=== PATIENT | female | born 1970 | race Asian ===

== ENCOUNTER 2018-09-14 07:02 | Inpatient (IN) | payer SELFPAY ==
[~2018-09-14] VITALS: Ht 162.6 cm; Wt 57.1 kg
[2018-09-14] MEDS ORDERED: SODIUM CHLORIDE 0.9% 100 ML ONE (07:29)
[2018-09-14] MEDS ORDERED: IOVERSOL 350 MG/ML 100 ML VIAL ONE (07:29)
[2018-09-14] MEDS ORDERED: ASPIRIN 81 MG CHEWABLE TABLET PO ONE ×3 (07:30→08:15)
[2018-09-14 07:43] LABS: BASOPHILS % (AUTO) 0.6 % (0.0-2.0); EOSINOPHILS % (AUTO) 2.3 % (1.0-6.0); HEMATOCRIT 45.1 % (36-46); HEMOGLOBIN 15.4 g/dL (12.0-16.0); LYMPHOCYTES % (AUTO) 34.7 % (22.0-44.0); MEAN CORPUSCULAR HEMOGLOBIN 29.2 pg (26.0-34.0); MEAN CORPUSCULAR HGB CONC 34.1 G/dL (31.0-37.0); MEAN CORPUSCULAR VOLUME 86 fL (80-100); MONOCYTES # (AUTO) 0.4 K/uL (0.1-1.0); MONOCYTES % (AUTO) 6.8 % (2.0-9.0); NEUTROPHILS # (AUTO) 3.2 K/uL (1.8-7.7); NEUTROPHILS % (AUTO) 55.6 % (40.0-70.0); PLATELET COUNT (AUTO) 240 K/uL (150-450); RED BLOOD CELL COUNT(AUTO) 5.27 MIL/uL (4.00-5.20); RED CELL DISTRIBUTION WIDTH 13.1 % (11.5-14.5)
[2018-09-14 07:54] LABS: PROTHROMBIN TIME 10.4 SEC (9.4-11.6)
[2018-09-14 07:58] LABS: ALANINE AMINOTRANSFERASE 37 U/L (12-78); ALBUMIN 3.9 g/dL (3.4-5.0); ALKALINE PHOSPHATASE 73 U/L (46-116); ANION GAP 6 mmol/L (8-16); ASPARTATE AMINOTRANSFERASE 25 U/L (15-37); BILIRUBIN,TOTAL 0.4 mg/dL (0.1-1.0); CALCIUM, TOTAL 9.2 mg/dL (8.8-10.5); CARBON DIOXIDE 29 mmol/L (22-29); CHLORIDE 103 mmol/L (98-107); CREATININE 0.61 mg/dL (0.60-1.30); GLOMERULAR FILTR. RATE CALC > 60 mL/min (>60); GLUCOSE,RANDOM 126 mg/dL (70-110); SODIUM SERUM 138 mmol/L (136-145); TOTAL PROTEIN, SERUM 7.8 g/dL (6.4-8.2); UREA NITROGEN, BLOOD 8 mg/dL (7-18)
[2018-09-14] MEDS ORDERED: ONDANSETRON HCL 4 MG/2 ML VIAL IVP ONE (08:30)
[2018-09-14 10:28] VITALS: BP 142/76
[2018-09-14] MEDS ORDERED: POTASSIUM CHLORIDE 20 MEQ ER TABLET PO ONE (11:00)
[2018-09-14] MEDS ORDERED: ONDANSETRON HCL 4 MG/2 ML VIAL IM PRN (11:00)
[2018-09-14] MEDS ORDERED: ONDANSETRON HCL 4 MG/2 ML VIAL IVP PRN (15:00)
[2018-09-14 15:49] VITALS: BP 122/58
[2018-09-14] MEDS ORDERED: MORPHINE SULFATE 4 MG/ML SYRINGE IVP PRN (17:30)
[2018-09-14] MEDS ORDERED: MAGNESIUM HYDROXIDE SUSPENSION 30 ML UDCUP PO PRN (17:30)
[2018-09-14] MEDS ORDERED: IPRATROPIUM BROMIDE 0.5 MG/2.5 ML NEB SOLUTION NEB PRN (17:30)
[2018-09-14] MEDS ORDERED: HYDROCODONE/ACETAMINOPHEN 5-325 MG TABLET PO PRN (17:30)
[2018-09-14] MEDS ORDERED: ACETAMINOPHEN 325 MG TABLET PO PRN (17:30)
[2018-09-14] MEDS ORDERED: ZOLPIDEM TARTRATE 5 MG TABLET PO PRN (17:30)
[2018-09-14] MEDS ORDERED: BISACODYL 10 MG RECTAL RECTAL SUPPOSITORY PR PRN (17:30)
[2018-09-14] MEDS ORDERED: ALBUTEROL SULFATE 2.5 MG/0.5 ML NEB SOLUTION NEB PRN (17:30)
[2018-09-14 18:28] LABS: FREE T4 (FREE THYROXINE) 0.85 ng/dL (0.76-1.46); THYROID STIMULATING HORMONE 0.98 uIU/mL (0.36-3.74)
[2018-09-14 19:26] LABS: APPEARANCE,URINE CLEAR (CLEAR); BILIRUBIN,URINE NEGATIVE (NEGATIVE); GLUCOSE, URINE (UA) NEGATIVE (NEGATIVE); KETONES,URINE 40 mg/dL (NEGATIVE); LEUKOCYTE ESTERASE ,URINE NEGATIVE (NEGATIVE); NITRATE,URINE NEGATIVE (NEGATIVE); OCCULT BLOOD,URINE NEGATIVE (NEGATIVE); PH,URINE 6.5 (5.0-8.0); PROTEIN,URINE NEGATIVE (NEGATIVE); UROBILINOGEN,URINE 0.2 mg/dL (<=1.0)
[2018-09-14 19:28] LABS: AMPHET/METH SCREEN,URINE NEGATIVE (NEGATIVE); BARBITURATE SCREEN, URINE NEGATIVE (NEGATIVE); BENZODIAZEPINES SCREEN,URINE NEGATIVE (NEGATIVE); CANNABINOID SCREEN,URINE NEGATIVE (NEGATIVE); COCAINE SCREEN,URINE NEGATIVE (NEGATIVE); METHADONE SCREEN, URINE NEGATIVE (NEGATIVE); OPIATE SCREEN,URINE NEGATIVE (NEGATIVE); PHENCYCLIDINE SCREEN,URINE NEGATIVE (NEGATIVE)
[2018-09-14 19:32] LABS: BACTERIA,URINE Few /HPF (None Seen); MUCUS,URINE Moderate LPF (None Seen); SQUAMOUS EPITHELIAL CELL,UR Few /LPF (None Seen); WBC,URINE 0-2 /HPF (0-5)
[2018-09-14] MEDS: MECLIZINE HCL 25 MG TABLET PO PRN (19:32)
[2018-09-14] MEDS: ONDANSETRON HCL 4 MG/2 ML VIAL IVP PRN (19:41)
[2018-09-14 19:46] VITALS: BP 128/58
[2018-09-14] MEDS: DOCUSATE SODIUM 100 MG CAPSULE PO SCH (20:48)
[2018-09-14] MEDS: HEPARIN SODIUM,PORCINE 5,000 UNITS/ML VIAL SQ SCH (23:46)
[2018-09-14 23:59] VITALS: BP 110/53
[2018-09-15 03:38] VITALS: BP 111/53
[2018-09-15 06:23] LABS: CHOL/HDL RATIO 3.5 (3.9-5.7); POTASSIUM 3.7 mmol/L (3.5-5.1)
[2018-09-15 07:10] VITALS: BP 108/63
[2018-09-15] MEDS: ONDANSETRON HCL 4 MG/2 ML VIAL IVP PRN (07:25)
[2018-09-15] MEDS: HEPARIN SODIUM,PORCINE 5,000 UNITS/ML VIAL SQ SCH (08:00)
[2018-09-15] MEDS: MECLIZINE HCL 25 MG TABLET PO PRN (08:17)
[2018-09-15] MEDS: DOCUSATE SODIUM 100 MG CAPSULE PO SCH ×2 (08:17→20:12)
[2018-09-15] MEDS: ASPIRIN 81 MG EC TABLET PO SCH (08:18)
[2018-09-15] MEDS ORDERED: PANTOPRAZOLE SODIUM 40 MG/VIAL IVP SCH (09:00)
[2018-09-15 11:49] VITALS: BP 115/66
[2018-09-15 15:04] LABS: GLUCOMETER DEV NAME(LOC) 5S 1N; GLUCOSE,POINT OF CARE 128 MG/DL (70-110)
[2018-09-15 15:39] VITALS: BP 129/77
[2018-09-15 19:16] VITALS: BP 127/65
[2018-09-15 23:16] VITALS: BP 110/64
[2018-09-16 05:09] VITALS: BP 137/84
[2018-09-16 07:01] VITALS: BP 142/85
[2018-09-16] MEDS: ASPIRIN 81 MG EC TABLET PO SCH (08:24)
[2018-09-16] MEDS: DOCUSATE SODIUM 100 MG CAPSULE PO SCH (08:25)
[2018-09-16 11:17] VITALS: BP 141/91
[2018-09-16] MEDS ORDERED: MECL-111 PO (13:45)
[2018-09-16] MEDS ORDERED: ASPI81TA39 PO (13:45)
[2018-09-16] MEDS ORDERED: ATOR20TA86 PO (13:46)
== END 2018-09-16 14:35 | disposition home or self-care (01) | DRG 149 ==
LOC: EMS 07:02 → 5S 08:27 → 5N 09-15 12:45
PROVIDERS: ADMIT Hospitalist; ATTEND Hospitalist
DX: H81.10 Benign paroxysmal vertigo, unspecified ear (principal); R00.1 Bradycardia, unspecified; E87.6 Hypokalemia; D64.9 Anemia, unspecified; E78.5 Hyperlipidemia, unspecified; Z59.0 Homelessness
CPT/HCPCS: 70551; 82948; 84132; 84439; 84443; 86850; 86900; 86901; 93005; 93306; 93880; 97110; 97116; 97165; 97535; C9113; G0378; J1644; J2405; J7050

== ENCOUNTER 2018-09-19 09:24 | Inpatient (IN) | payer SELFPAY ==
[~2018-09-19] VITALS: Ht 152.4 cm; Wt 51.1 kg
[~2018-09-19 09:24] MED LIST: ASPI81TA39 PO; ATOR20TA86 PO; MECL-111 PO
[2018-09-19] MEDS: MECLIZINE HCL 25 MG TABLET PO ONE ×2 (10:15→10:18)
[2018-09-19 10:28] LABS: BASOPHILS % (AUTO) 0.7 % (0.0-2.0); EOSINOPHILS % (AUTO) 1.2 % (1.0-6.0); HEMATOCRIT 44.3 % (36-46); HEMOGLOBIN 15.7 g/dL (12.0-16.0); LYMPHOCYTES # (AUTO) 1.9 K/uL (1.0-4.8); LYMPHOCYTES % (AUTO) 31.9 % (22.0-44.0); MEAN CORPUSCULAR HEMOGLOBIN 29.7 pg (26.0-34.0); MEAN CORPUSCULAR HGB CONC 35.4 G/dL (31.0-37.0); MEAN CORPUSCULAR VOLUME 84 fL (80-100); MONOCYTES # (AUTO) 0.5 K/uL (0.1-1.0); MONOCYTES % (AUTO) 9.1 % (2.0-9.0); NEUTROPHILS # (AUTO) 3.4 K/uL (1.8-7.7); NEUTROPHILS % (AUTO) 57.1 % (40.0-70.0); PLATELET COUNT (AUTO) 266 K/uL (150-450); RED BLOOD CELL COUNT(AUTO) 5.27 MIL/uL (4.00-5.20); RED CELL DISTRIBUTION WIDTH 12.6 % (11.5-14.5)
[2018-09-19] MEDS ORDERED: DIAZEPAM 5 MG/ML 2 ML SYRINGE IVP ONE (10:30)
[2018-09-19 10:39] LABS: ANION GAP 7 mmol/L (8-16); CALCIUM, TOTAL 9.3 mg/dL (8.8-10.5); CARBON DIOXIDE 29 mmol/L (22-29); CHLORIDE 104 mmol/L (98-107); CREATININE 0.63 mg/dL (0.60-1.30); GLOMERULAR FILTR. RATE CALC > 60 mL/min (>60); GLUCOSE,RANDOM 105 mg/dL (70-110); POTASSIUM 3.4 mmol/L (3.5-5.1); PROTHROMBIN TIME 10.6 SEC (9.4-11.6); SODIUM SERUM 140 mmol/L (136-145); UREA NITROGEN, BLOOD 8 mg/dL (7-18)
[2018-09-19 11:02] LABS: B-TYPE NATRIURETIC PEPTIDE 9 pg/mL (0-100)
[2018-09-19 11:10] LABS: ALANINE AMINOTRANSFERASE 31 U/L (12-78); ALBUMIN 4.2 g/dL (3.4-5.0); ALKALINE PHOSPHATASE 72 U/L (46-116); ASPARTATE AMINOTRANSFERASE 23 U/L (15-37); BILIRUBIN,TOTAL 0.6 mg/dL (0.1-1.0); CREATINE KINASE, TOTAL ONLY 76 U/L (26-192); TOTAL PROTEIN, SERUM 8.2 g/dL (6.4-8.2)
[2018-09-19 11:32] LABS: BILIRUBIN,URINE NEGATIVE (NEGATIVE); GLUCOSE, URINE (UA) NEGATIVE (NEGATIVE); KETONES,URINE NEGATIVE (NEGATIVE); LEUKOCYTE ESTERASE ,URINE TRACE (NEGATIVE); NITRATE,URINE NEGATIVE (NEGATIVE); OCCULT BLOOD,URINE NEGATIVE (NEGATIVE); PH,URINE 7.5 (5.0-8.0); PROTEIN,URINE NEGATIVE (NEGATIVE); UROBILINOGEN,URINE 0.2 mg/dL (<=1.0)
[2018-09-19 12:00] LABS: AMORPHOUS SEDIMENT,UR Few /LPF (None Seen); APPEARANCE,URINE SLIGHTLY CLOUDY (CLEAR); BACTERIA,URINE None Seen /HPF (None Seen); RBC,URINE None Seen /HPF (0-2); SQUAMOUS EPITHELIAL CELL,UR Few /LPF (None Seen); WBC,URINE 0-2 /HPF (0-5)
[2018-09-19] MEDS ORDERED: GLUCAGON,HUMAN RECOMBINANT 1 MG VIAL IVP ONE (16:45)
[2018-09-19] MEDS ORDERED: SODIUM CHLORIDE 0.9% 1,000 ML IV ONE (17:30)
[2018-09-19] MEDS ORDERED: 0.9% SODIUM CHLORIDE 10 ML SYRINGE IVP PRN (17:45)
[2018-09-19] MEDS ORDERED: ACETAMINOPHEN 325 MG TABLET PO PRN (17:45)
[2018-09-19] MEDS ORDERED: ONDANSETRON HCL 4 MG/2 ML VIAL IVP PRN (17:45)
[2018-09-19] MEDS ORDERED: BISACODYL 10 MG RECTAL RECTAL SUPPOSITORY PR PRN (20:30)
[2018-09-19] MEDS: DOCUSATE SODIUM 100 MG CAPSULE PO SCH (21:00)
[2018-09-19] MEDS: ASPIRIN 325 MG TABLET NG SCH (21:00)
[2018-09-19] MEDS: ATORVASTATIN CALCIUM 40 MG TABLET NG SCH (21:00)
[2018-09-19 21:11] LABS: GLUCOSE,POINT OF CARE 101 MG/DL (70-110)
[2018-09-19 21:57] VITALS: BP 135/88
[2018-09-19 22:25] LABS: CHOL/HDL RATIO 2.6 (3.9-5.7)
[2018-09-19] MEDS: DEXTROSE 5%-0.45% SODIUM CHL 1,000 ML IV SCH (22:42)
[2018-09-19 23:49] VITALS: BP 103/69
[2018-09-20] MEDS: HEPARIN SODIUM,PORCINE 5,000 UNITS/ML VIAL SQ SCH ×4 (00:21→23:32)
[2018-09-20 03:39] VITALS: BP 100/55
[2018-09-20 06:30] LABS: BASOPHILS % (AUTO) 0.5 % (0.0-2.0); EOSINOPHILS % (AUTO) 0.2 % (1.0-6.0); HEMATOCRIT 40.2 % (36-46); HEMOGLOBIN 14.2 g/dL (12.0-16.0); LYMPHOCYTES # (AUTO) 1.7 K/uL (1.0-4.8); LYMPHOCYTES % (AUTO) 12.8 % (22.0-44.0); MEAN CORPUSCULAR HEMOGLOBIN 29.5 pg (26.0-34.0); MEAN CORPUSCULAR HGB CONC 35.3 G/dL (31.0-37.0); MEAN CORPUSCULAR VOLUME 84 fL (80-100); MONOCYTES % (AUTO) 7.2 % (2.0-9.0); NEUTROPHILS # (AUTO) 10.7 K/uL (1.8-7.7); NEUTROPHILS % (AUTO) 79.3 % (40.0-70.0); PLATELET COUNT (AUTO) 243 K/uL (150-450); RED CELL DISTRIBUTION WIDTH 13.1 % (11.5-14.5)
[2018-09-20 06:46] LABS: ALANINE AMINOTRANSFERASE 33 U/L (12-78); ALBUMIN 3.7 g/dL (3.4-5.0); ALKALINE PHOSPHATASE 67 U/L (46-116); ANION GAP 4 mmol/L (8-16); ASPARTATE AMINOTRANSFERASE 20 U/L (15-37); BILIRUBIN,TOTAL 0.9 mg/dL (0.1-1.0); CARBON DIOXIDE 33 mmol/L (22-29); CHLORIDE 103 mmol/L (98-107); GLOMERULAR FILTR. RATE CALC > 60 mL/min (>60); GLUCOSE,RANDOM 123 mg/dL (70-110); POTASSIUM 3.4 mmol/L (3.5-5.1); SODIUM SERUM 140 mmol/L (136-145); TOTAL PROTEIN, SERUM 7.7 g/dL (6.4-8.2); UREA NITROGEN, BLOOD 12 mg/dL (7-18)
[2018-09-20 07:15] VITALS: BP 140/79
[2018-09-20] MEDS ORDERED: LORazepam 2 MG/ML VIAL IVP PRN (07:45)
[2018-09-20] MEDS: PANTOPRAZOLE SODIUM 40 MG/VIAL IVP SCH (08:13)
[2018-09-20] MEDS ORDERED: LORazepam 2 MG/ML VIAL IVP ONE (08:15)
[2018-09-20] MEDS ORDERED: GADOBUTROL 1 MMOL/ML 10 ML VIAL IVP ONE (09:32)
[2018-09-20] MEDS ORDERED: MAGNESIUM SULFATE 2 GM/WATER 50 ML IV PRN (11:15)
[2018-09-20] MEDS ORDERED: MAGNESIUM SULFATE 4 GM/WATER 100 ML IV PRN (11:15)
[2018-09-20] MEDS ORDERED: MAGNESIUM OXIDE 400 MG TABLET PO PRN (11:15)
[2018-09-20] MEDS ORDERED: POTASSIUM CHLORIDE 20 MEQ ER TABLET PO PRN (11:15)
[2018-09-20 11:34] VITALS: BP 151/88
[2018-09-20] MEDS: POTASSIUM CHL 10 MEQ/WATER 50 ML IV PRN ×4 (12:15→21:36)
[2018-09-20] MEDS: DOCUSATE SODIUM 100 MG CAPSULE PO SCH ×2 (12:15→21:36)
[2018-09-20] MEDS: CLOPIDOGREL BISULFATE 75 MG TABLET PO SCH (12:15)
[2018-09-20] MEDS: DEXTROSE 5%-0.45% SODIUM CHL 1,000 ML IV SCH (12:40)
[2018-09-20 15:30] VITALS: BP 154/98
[2018-09-20 19:50] VITALS: BP 154/88
[2018-09-20] MEDS: ASPIRIN 325 MG TABLET NG SCH (21:35)
[2018-09-20] MEDS: ATORVASTATIN CALCIUM 40 MG TABLET NG SCH (21:36)
[2018-09-20] MEDS ORDERED: SODIUM CHLORIDE 0.9% 250 ML IV ONE (22:00)
[2018-09-20 23:41] VITALS: BP 128/86
[2018-09-21] MEDS ORDERED: SODIUM CHLORIDE 0.9% 250 ML IV ONE (01:15)
[2018-09-21] MEDS: POTASSIUM CHL 10 MEQ/WATER 50 ML IV PRN ×5 (01:17→14:56)
[2018-09-21 04:15] VITALS: BP 120/98
[2018-09-21] MEDS: DEXTROSE 5%-0.45% SODIUM CHL 1,000 ML IV SCH ×2 (04:34→23:42)
[2018-09-21 05:52] LABS: MAGNESIUM 2.3 mg/dL (1.80-2.40)
[2018-09-21 06:18] LABS: POTASSIUM 3.4 mmol/L (3.5-5.1)
[2018-09-21] MEDS: HEPARIN SODIUM,PORCINE 5,000 UNITS/ML VIAL SQ SCH ×2 (07:22→23:42)
[2018-09-21] MEDS: CLOPIDOGREL BISULFATE 75 MG TABLET PO SCH (07:23)
[2018-09-21] MEDS: DOCUSATE SODIUM 100 MG CAPSULE PO SCH ×2 (07:23→23:43)
[2018-09-21] MEDS: PANTOPRAZOLE SODIUM 40 MG/VIAL IVP SCH (07:25)
[2018-09-21 07:48] VITALS: BP 147/95
[2018-09-21] MEDS ORDERED: MECLIZINE HCL 25 MG TABLET PO PRN (10:15)
[2018-09-21 12:15] VITALS: BP 157/81
[2018-09-21 16:18] VITALS: BP 139/92
[2018-09-21 19:41] VITALS: BP 124/79
[2018-09-21] MEDS: ATORVASTATIN CALCIUM 40 MG TABLET NG SCH (23:41)
[2018-09-21 23:48] VITALS: BP 112/73
[2018-09-22 05:11] VITALS: BP 129/68
[2018-09-22 05:55] LABS: BASOPHILS % (AUTO) 0.7 % (0.0-2.0); HEMATOCRIT 42.1 % (36-46); HEMOGLOBIN 14.5 g/dL (12.0-16.0); LYMPHOCYTES # (AUTO) 1.9 K/uL (1.0-4.8); MEAN CORPUSCULAR HEMOGLOBIN 29.3 pg (26.0-34.0); MEAN CORPUSCULAR HGB CONC 34.4 G/dL (31.0-37.0); MEAN CORPUSCULAR VOLUME 85 fL (80-100); MONOCYTES # (AUTO) 1.4 K/uL (0.1-1.0); MONOCYTES % (AUTO) 12.8 % (2.0-9.0); NEUTROPHILS # (AUTO) 7.4 K/uL (1.8-7.7); NEUTROPHILS % (AUTO) 67.5 % (40.0-70.0); PLATELET COUNT (AUTO) 257 K/uL (150-450); RED BLOOD CELL COUNT(AUTO) 4.95 MIL/uL (4.00-5.20); RED CELL DISTRIBUTION WIDTH 13.1 % (11.5-14.5)
[2018-09-22 06:02] LABS: ANION GAP 11 mmol/L (8-16); CALCIUM, TOTAL 9.6 mg/dL (8.8-10.5); CARBON DIOXIDE 28 mmol/L (22-29); CHLORIDE 103 mmol/L (98-107); CREATININE 0.67 mg/dL (0.60-1.30); GLOMERULAR FILTR. RATE CALC > 60 mL/min (>60); GLUCOSE,RANDOM 124 mg/dL (70-110); POTASSIUM 3.5 mmol/L (3.5-5.1); SODIUM SERUM 142 mmol/L (136-145); UREA NITROGEN, BLOOD 11 mg/dL (7-18)
[2018-09-22 07:26] VITALS: BP 122/81
[2018-09-22] MEDS: ASPIRIN 81 MG CHEWABLE TABLET PO SCH (08:59)
[2018-09-22] MEDS: DOCUSATE SODIUM 100 MG CAPSULE PO SCH ×2 (08:59→20:06)
[2018-09-22] MEDS: HEPARIN SODIUM,PORCINE 5,000 UNITS/ML VIAL SQ SCH ×2 (09:00→20:06)
[2018-09-22] MEDS: PANTOPRAZOLE SODIUM 40 MG/VIAL IVP SCH (09:03)
[2018-09-22 11:33] VITALS: BP 141/94
[2018-09-22] MEDS: DEXTROSE 5%-0.45% SODIUM CHL 1,000 ML IV SCH (15:05)
[2018-09-22 15:35] VITALS: BP 132/89
[2018-09-22 19:20] VITALS: BP 148/60
[2018-09-22] MEDS: ATORVASTATIN CALCIUM 40 MG TABLET NG SCH (20:06)
[2018-09-23] VITALS (8 sets, daily range): BP systolic 103–196; BP diastolic 63–94
[2018-09-23] MEDS: ACETAMINOPHEN 325 MG TABLET PO PRN (04:48)
[2018-09-23] MEDS: PANTOPRAZOLE SODIUM 40 MG/VIAL IVP SCH (08:46)
[2018-09-23] MEDS: HEPARIN SODIUM,PORCINE 5,000 UNITS/ML VIAL SQ SCH ×2 (08:47→20:32)
[2018-09-23] MEDS: DOCUSATE SODIUM 100 MG CAPSULE PO SCH ×2 (08:47→20:31)
[2018-09-23] MEDS: ASPIRIN 81 MG CHEWABLE TABLET PO SCH (08:47)
[2018-09-23] MEDS: ATORVASTATIN CALCIUM 40 MG TABLET NG SCH (20:31)
[2018-09-24] VITALS (7 sets, daily range): BP systolic 115–145; BP diastolic 65–90
[2018-09-24] MEDS: ACETAMINOPHEN 325 MG TABLET PO PRN ×2 (01:26→18:32)
[2018-09-24] MEDS: PANTOPRAZOLE SODIUM 40 MG/VIAL IVP SCH (08:38)
[2018-09-24] MEDS: ASPIRIN 81 MG CHEWABLE TABLET PO SCH (08:40)
[2018-09-24] MEDS: DOCUSATE SODIUM 100 MG CAPSULE PO SCH ×2 (08:40→20:16)
[2018-09-24] MEDS: HEPARIN SODIUM,PORCINE 5,000 UNITS/ML VIAL SQ SCH ×2 (08:40→20:16)
[2018-09-24] MEDS ORDERED: SODIUM CHLORIDE 0.9% 1,000 ML IV ONE ×2 (11:58→12:00)
[2018-09-24] MEDS ORDERED: CeFAZolin 1 GM/DEXTROSE 50 ML IV ONE (12:15)
[2018-09-24] MEDS: ATORVASTATIN CALCIUM 40 MG TABLET NG SCH (20:16)
[2018-09-25 04:52] VITALS: BP 132/90
[2018-09-25] MEDS ORDERED: PROPOFOL 1% 20 ML VIAL IVP ONE (06:34)
[2018-09-25 07:10] VITALS: BP 148/84
[2018-09-25] MEDS: DOCUSATE SODIUM 100 MG CAPSULE PO SCH ×2 (08:20→19:43)
[2018-09-25] MEDS: PANTOPRAZOLE SODIUM 40 MG/VIAL IVP SCH (08:20)
[2018-09-25] MEDS: ASPIRIN 81 MG CHEWABLE TABLET PO SCH (08:20)
[2018-09-25] MEDS: HEPARIN SODIUM,PORCINE 5,000 UNITS/ML VIAL SQ SCH ×2 (08:20→19:43)
[2018-09-25 13:45] VITALS: BP 145/82
[2018-09-25] MEDS: ATORVASTATIN CALCIUM 40 MG TABLET NG SCH (19:43)
[2018-09-25 20:19] VITALS: BP 145/88
[2018-09-25 23:38] VITALS: BP 116/67
[2018-09-26 04:50] VITALS: BP 129/74
[2018-09-26 07:27] VITALS: BP 128/82
[2018-09-26 12:05] VITALS: BP 133/95
[2018-09-26 15:53] VITALS: BP 140/88
[2018-09-26] MEDS: ASPIRIN 81 MG CHEWABLE TABLET PO SCH (16:03)
[2018-09-26] MEDS: HEPARIN SODIUM,PORCINE 5,000 UNITS/ML VIAL SQ SCH ×2 (16:03→19:43)
[2018-09-26] MEDS: DOCUSATE SODIUM 100 MG CAPSULE PO SCH ×2 (16:03→19:43)
[2018-09-26] MEDS: PANTOPRAZOLE SODIUM 40 MG/VIAL IVP SCH (16:04)
[2018-09-26] MEDS: ATORVASTATIN CALCIUM 40 MG TABLET NG SCH (19:43)
[2018-09-26 19:47] VITALS: BP 124/91
[2018-09-26 23:54] VITALS: BP 134/88
[2018-09-27] MEDS: ACETAMINOPHEN 325 MG TABLET PO PRN ×2 (02:14→19:52)
[2018-09-27 05:16] VITALS: BP 110/73
[2018-09-27 07:59] VITALS: BP 120/88
[2018-09-27] MEDS: ASPIRIN 81 MG CHEWABLE TABLET PO SCH (08:02)
[2018-09-27] MEDS: HEPARIN SODIUM,PORCINE 5,000 UNITS/ML VIAL SQ SCH ×2 (08:02→19:52)
[2018-09-27] MEDS: PANTOPRAZOLE SODIUM 40 MG/VIAL IVP SCH (08:02)
[2018-09-27] MEDS: DOCUSATE SODIUM 100 MG CAPSULE PO SCH ×2 (08:02→19:52)
[2018-09-27 11:20] VITALS: BP 143/90
[2018-09-27 19:51] VITALS: BP 147/69
[2018-09-27] MEDS: ATORVASTATIN CALCIUM 40 MG TABLET NG SCH (19:52)
[2018-09-28 00:12] VITALS: BP 116/70
[2018-09-28 04:18] VITALS: BP 119/73
[2018-09-28 08:00] VITALS: BP 117/52
[2018-09-28] MEDS: HEPARIN SODIUM,PORCINE 5,000 UNITS/ML VIAL SQ SCH (08:20)
[2018-09-28] MEDS: DOCUSATE SODIUM 100 MG CAPSULE PO SCH (08:21)
[2018-09-28] MEDS: PANTOPRAZOLE SODIUM 40 MG/VIAL IVP SCH (08:21)
[2018-09-28] MEDS: ASPIRIN 81 MG CHEWABLE TABLET PO SCH (08:21)
[2018-09-28] MEDS ORDERED: WATER FOR IRRIGATION,STERILE 1000 ML SOLUTION BOTTLE ONE (08:27)
[2018-09-28 11:31] VITALS: BP 134/74
[2018-09-28] MEDS: ACETAMINOPHEN 325 MG TABLET PO PRN (13:56)
[2018-09-28] MEDS ORDERED: ATOR40TA28 PO (15:15)
[2018-09-28] MEDS ORDERED: [UNRECOGNIZED DRUG - CODE] GT (15:19)
== END 2018-09-28 16:28 | disposition home or self-care (01) | DRG 64 ==
LOC: EMS 09:25 → 5N 19:11 → 6N 09-24 09:35
PROVIDERS: ADMIT Internal Medicine; ATTEND Internal Medicine
PROC: 0DH63UZ Insertion of Feeding Device into Stomach, Percutaneous Approach (ICD-10-PCS; principal; 2018-09-24 13:00)
DX: I63.9 Cerebral infarction, unspecified (principal); K22.6 Gastro-esophageal laceration-hemorrhage syndrome; E87.6 Hypokalemia; E78.5 Hyperlipidemia, unspecified; R13.12 Dysphagia, oropharyngeal phase; R13.10 Dysphagia, unspecified; G46.4 Cerebellar stroke syndrome; Z59.0 Homelessness; Z79.82 Long term (current) use of aspirin; Z93.1 Gastrostomy status
CPT/HCPCS: 70544; 70549; 70551; 74230; 82607; 82948; 83036; 83516; 83735; 84132; 85300; 85301; 85302; 85305; 85306; 86038; 87081; 92526; 92610; 92611; 93005; 96361; 96374; 96375; 97110; 97112; 97116; 97162; 97166; 97530; 97535; A9585; C9113; G0378; J0690; J1610; J1644; J2060; J2704; J3480; J7030; J7050